=== PATIENT | male | born 1990 | race American Indian/Alaskan Native ===

== ENCOUNTER 2019-06-16 13:06 | Outpatient (CLI) | payer BC | END 2019-06-16 13:07 | disposition home or self-care (01) | LOC: LABHHL 13:06 | PROVIDERS: ATTEND Otolaryngology | DX: D23.9 Other benign neoplasm of skin, unspecified (principal); K21.9 Gastro-esophageal reflux disease without esophagitis | CPT/HCPCS: 88305; 88307 ==